=== PATIENT | female | born 1950 | race Caucasian/White ===

== ENCOUNTER 2019-05-16 07:37 | Outpatient (CLI) | payer MEDICARE, SELFPAY ==
--- NOTE | ~2019-05-16 | CT_ITS ---
EXAMINATION: CT abdomen pelvis wo con EXAM DATE: 05/16/2019 08:07 INDICATION: Nodule. TECHNIQUE: Spiral CT of the abdomen and pelvis was performed without contrast. Axial, coronal and s agittal images were reviewed. The dose-length product (DLP) for this examination was 568.81 mGy-cm. The exposure was tailored according to patient size (auto mA exposure control), and iterative recons truction (ASIR) was used as additional dose reduction technique. Comparison is made to prior examinat ion from 11/18/2018. FINDINGS: There is a 2.2 cm left adrenal gland nodule which is low density, consistent with adenoma. Size is unchanged compared to prior study. Pancreas, spleen, liver, right adrenal gland are unremarka ble. Gallbladder is unremarkable. No biliary obstruction. There is no nephrolithiasis or hydroneph rosis. The uterus is unremarkable. The bladder is unremarkable. There is no retroperitoneal or p elvic lymphadenopathy. There is mild scattered arteriosclerotic disease. The appendix is not positively visualized. There is no pericecal inflammatory change to suggest appe ndicitis. There is mild scattered colonic diverticulosis. There is no adjacent inflammatory change to suggest diverticulitis. There is small sliding gastroesophageal hiatal hernia. There is expected amount of colonic stool. No free intraperitoneal gas. The heart is normal in size. There are no pericardial or pleural effusions. The lung bases are unremarkable. There are no osteoblastic or ost eolytic lesions identified. There is a left hip arthroplasty. This is obscuring some details in the p rasheed IMPRESSION: 1. Left adrenal adenoma, unchanged. 2. Mild scattered colonic diverticulosis. 3. Small hiatal hernia. Reviewed, dictated and finalized at location A. 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
== END 2019-05-16 07:38 | disposition home or self-care (01) ==
LOC: ANHIMG 07:48
PROVIDERS: PCP Family Medicine; Visit Provider Nurse Practitioner
DX: E27.9 Disorder of adrenal gland, unspecified (principal); D35.02 Benign neoplasm of left adrenal gland; K57.30 Diverticulosis of large intestine without perforation or abscess without bleeding; K44.9 Diaphragmatic hernia without obstruction or gangrene
CPT/HCPCS: 74176

== ENCOUNTER 2019-11-24 14:08 | Outpatient (CLI) | payer MEDICARE, SELFPAY ==
--- NOTE | ~2019-11-24 | XR_ITS ---
EXAMINATION: XR knee RT min 4V DATE: 11/24/2019 14:32 INDICATION: Right knee pain. TECHNIQUE: 4 views of right knee were obtained. COMPARISON: None. FINDINGS: Bone alignment is normal. No fracture. There is mild tricompartmental osteoarthritis. There is a small knee joint effusion. IMPRESSION: 1. Mild right knee osteoarthritis. 2. Small right knee joint effusion. Reviewed, dictated and finalized at location B.
== END 2019-11-24 14:09 | disposition home or self-care (01) ==
LOC: ANHIMG 14:14
PROVIDERS: PCP Family Medicine; Visit Provider Physician Assistant
DX: M17.11 Unilateral primary osteoarthritis, right knee (principal); M25.461 Effusion, right knee
CPT/HCPCS: 73564

== ENCOUNTER 2020-02-03 13:48 | Outpatient (CLI) | payer MEDICARE, SELFPAY ==
--- NOTE | ~2020-02-03 | DEXA_ITS ---
Bone Density Report Name: Ramona Damon Age: 69 Sex: Female Ethnicity: White Date of : 1950 Indication: postmenopausal; height loss; Referring Provider: Joanna Lira Study: Bone densitometry was performed. Exam Date: February 03, 2020 Accession number: [id number] Bone Density: Region BMD T-score Z-score Classification AP Spine (L1-L4) 1.166 1.1 3.0 Normal Femoral Neck (Right) 0.732 -1.1 0.6 Osteopenia Total Hip (Right) 0.987 0.4 1.7 Normal World Health Organization criteria for BMD impression classify patients as: Normal (T-score at or above -1.0), Osteopenia (T-score between -1.0 and -2.5), or Osteoporosis (T-score at or below -2.5). 10-year Fracture Risk(1): Major Osteoporotic Fracture 8.2% Hip Fracture 0.7% Reported Risk Factors: [place] (), Neck BMD=0.732, BMI=31.3 (1) FRAX(R) Version 3.08. Fracture probability calculated for an untreated patient. Fracture probability may be lower if the patient has received treatment. Previous Exams: Region Exam Age BMD T-score BMD Change BMD Change Date g/cm2 vs Baseline vs Previous AP Spine(L1-L4) 02/03/2020 69 1.166 1.1 -0.212(-15.4%) -0.043(-3.6%)* 10/05/2017 67 1.209 1.5 -0.169(-12.3%) -0.169(-12.3%) 08/10/2010 60 1.378 3.0 Total Hip(Right) 02/03/2020 69 0.987 0.4 -0.099(-9.1%)# -0.018(-1.8%) 10/05/2017 67 1.006 0.5 -0.081(-7.4%)# -0.081(-7.4%)# 08/10/2010 60 1.087 1.2 *Denotes significance at 95% confidence level, LSC for AP Spine = 0.022 g/cm2, LSC for Total Hip = 0.027 g/cm2 Clinical Information Provided by Patient: Patient maximum height was 68 Menopause Age: 57 Onset of menses at age 14 Number of children 1 Impression: The patient has low bone mass, based on the Right Femoral Neck T-score. The patient has an estimated ten-year risk of hip fracture of 0.7% and an estimated ten-year risk of major fracture of 8.2%, based on the WHO FRAX algorithm. The BMD for the AP Spine(L1-L4) decreased, changing by -3.6% since the last DXA exam. Discussion: BONE DENSITY IS LOW AT ONE OR MORE SKELETAL SITES. This patient's lowest T-score is low at one or more skeletal sites. It meets the World Health Organization's (WHO) criteria for ?low bone mass? (T-score between -1.0 and -2.5). The patient's 10-year risk of fracture as calculated by FRAX is less than the threshold where pharmacological therapy is recommended by the National Osteoporosis Foundation (NOF). However, all treatment decisions require clinical deirdre
--- NOTE | ~2020-02-03 | MM_ITS ---
EXAMINATION: MM screening [facility] w marta HISTORY: Screening mammogram TECHNIQUE: Craniocaudal and mediolateral oblique 3-D tomosynthesis images were obtained and synthetic 2-D images were generated. CAD analysis was submitted and interpreted. COMPARISON: 01/17/2019, 10/05/2017, 09/20/2016 bilateral digital screening mammogram examinations BREAST PARENCHYMAL COMPOSITION: There are scattered areas of fibroglandular density. FINDINGS: Stable mild fibroglandular asymmetry and occasional benign calcifications. There is no evid ence of suspicious mass, calcification, or architectural distortion to suggest malignancy in either b reast. There has been no suspicious interval change. IMPRESSION: 1. No mammographic evidence of malignancy. 2. Recommend routine screening mammography in one year. BI-RADS Category 2: Benign finding(s). Reviewed, dictated and finalized at location A.
== END 2020-02-03 13:49 | disposition home or self-care (01) ==
PROVIDERS: PCP Family Medicine; Visit Provider Family Medicine
DX: Z12.31 Encounter for screening mammogram for malignant neoplasm of breast (principal); Z78.0 Asymptomatic menopausal state; M85.851 Other specified disorders of bone density and structure, right thigh
CPT/HCPCS: 77063; 77067; 77080

== ENCOUNTER 2021-02-04 09:12 | Outpatient (CLI) | payer MEDICARE, SELFPAY ==
--- NOTE | ~2021-02-04 | MM_ITS ---
EXAMINATION: MM screening [facility] w marta HISTORY: Screening mammogram TECHNIQUE: Craniocaudal and mediolateral oblique 3-D tomosynthesis images were obtained and synthetic 2-D images were generated. CAD analysis was submitted and interpreted. COMPARISON: 02/03/2020, 01/17/2019, 10/05/2017 bilateral digital screening mammogram examinations BREAST PARENCHYMAL COMPOSITION: There are scattered areas of fibroglandular density. FINDINGS: Stable mild fibroglandular asymmetry and occasional benign calcifications. There is no evid ence of suspicious mass, calcification, or architectural distortion to suggest malignancy in either b reast. There has been no suspicious interval change. IMPRESSION: 1. No mammographic evidence of malignancy. 2. Recommend routine screening mammography in one year. BI-RADS Category 2: Benign finding(s). Reviewed, dictated and finalized at location A.
== END 2021-02-04 09:13 | disposition home or self-care (01) ==
LOC: ANHIMG 09:14
PROVIDERS: PCP Family Medicine; Visit Provider Family Medicine
DX: Z12.31 Encounter for screening mammogram for malignant neoplasm of breast (principal)
CPT/HCPCS: 77063; 77067

== ENCOUNTER → 2021-04-27 02:12 | Outpatient (CLI) | payer MEDICARE, SELFPAY ==
[2021-04-27 23:19] LABS: SARS-CoV-2 RNA PCR Negative
== END ==
PROVIDERS: PCP Family Medicine; Visit Provider Family Medicine
DX: R09.89 Other specified symptoms and signs involving the circulatory and respiratory systems (principal); Z20.822 Contact with and (suspected) exposure to COVID-19
CPT/HCPCS: C9803; U0003; U0005

== ENCOUNTER 2022-04-01 08:56 | Outpatient (CLI) | payer MEDICARE, SELFPAY ==
--- NOTE | ~2022-04-01 | MM_ITS ---
EXAMINATION: MM screening [facility] BI w marta HISTORY: Screening TECHNIQUE: Craniocaudal and mediolateral oblique 3-D tomosynthesis images were obtained and synthetic 2-D images were generated. CAD analysis was submitted and interpreted. COMPARISON: Comparison to multiple prior studies sequentially, with oldest reviewed study dated 09/2015. BREAST PARENCHYMAL COMPOSITION: There are scattered areas of fibroglandular density. FINDINGS: There is no evidence of suspicious mass, calcification, or architectural distortion to sugg est malignancy in either breast. There has been no suspicious interval change. IMPRESSION: 1. No mammographic evidence of malignancy. 2. Recommend routine screening mammography in one year. BI-RADS Category 1: Negative. Reviewed, dictated and finalized at location A. 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
== END 2022-04-01 08:57 | disposition home or self-care (01) ==
LOC: ANHIMG 08:57
PROVIDERS: PCP Family Medicine; Visit Provider Family Medicine
DX: Z12.31 Encounter for screening mammogram for malignant neoplasm of breast (principal)
CPT/HCPCS: 77063; 77067

== ENCOUNTER 2022-06-04 09:24 | Outpatient (CLI) | payer MEDICARE, SELFPAY ==
--- NOTE | ~2022-06-04 | XR_ITS ---
Left Knee Technique: AP, lateral, and sunrise views were obtained. Clinical History: Pain Findings: No fracture or dislocation is seen. Osseous alignment is anatomic. Minimal degenerative spu rring noted at the patella and intercondylar notch. Soft tissues are unremarkable. No joint effusion is seen. Impression: Minimal degenerative spurring, as above. Reviewed, dictated and finalized at location . VISION SCHEDULE COORDINATOR Impression: Minimal degenerative spurring, as above.
== END 2022-06-04 09:25 | disposition home or self-care (01) ==
PROVIDERS: PCP Family Medicine; Visit Provider Physician Assistant
DX: M25.562 Pain in left knee (principal)
CPT/HCPCS: 73564

== ENCOUNTER 2022-08-21 19:27 | Emergency (ER) | payer OTHER, MEDICARE, SELFPAY ==
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
--- NOTE | ~2022-08-21 | XR_ITS ---
EXAMINATION: XR shoulder LT min 2V DATE: 08/21/2022 20:36 INDICATION: Left shoulder pain. TECHNIQUE: 4 views of left shoulder were obtained. COMPARISON: Left shoulder radiographs 05/13/2018 FINDINGS: Bone alignment is normal. No fracture. There is moderate osteoarthritis of glenohumeral melissa nt with a loose body. Acromioclavicular joint is normal. IMPRESSION: 1. Moderate osteoarthritis of glenohumeral joint with a loose body. Reviewed, dictated and finalized at location E.
[2022-08-21 19:45] VITALS: BP 143/79; PULSE 75; RESP 18; TEMP 36.8; O2SAT 100
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
== END 2022-08-21 21:32 | disposition home or self-care (01) ==
PROVIDERS: Emergency Provider Emergency Medicine; PCP Family Medicine
DX: S13.4XXA Sprain of ligaments of cervical spine, initial encounter (principal); I10 Essential (primary) hypertension; V49.88XA Car occupant (driver) (passenger) injured in other specified transport accidents, initial encounter
CPT/HCPCS: 72125; 73030; 99284

== ENCOUNTER 2023-01-15 11:30 | Outpatient (CLI) | payer MEDICARE, SELFPAY ==
--- NOTE | ~2023-01-15 | XR_ITS ---
XR heel RT min 2V DATE: 01/15/2023 11:55 INDICATION: Right heel pain, soreness TECHNIQUE: Axial and lateral views COMPARISON: None FINDINGS: Moderate plantar and minimal posterior calcaneal enthesopathy. No erosive change or periost itis. No fracture, dislocation or bone destruction of the calcaneus. IMPRESSION: Calcaneal enthesopathy Reviewed, dictated and finalized at location L. IMPRESSION: Calcaneal enthesopathy
== END 2023-01-15 11:31 | disposition home or self-care (01) ==
LOC: ANHIMG 11:37
PROVIDERS: PCP Family Medicine; Visit Provider Physician Assistant
DX: M77.31 Calcaneal spur, right foot (principal)
CPT/HCPCS: 73650

== ENCOUNTER 2023-03-13 00:59 | Day surgery (SDC) | payer MEDICARE, SELFPAY ==
[2023-02-26 11:06] VITALS: BMI 31.5
[2023-03-13 08:08] VITALS: BP 164/99; PULSE 72; RESP 20; TEMP 35.8; O2SAT 99; BMI 30.2
[2023-03-13] MEDS: LACTATED RINGERS 1,000 ML 150 ML IV CONT (08:22)
[2023-03-13 08:24] VITALS: BP 132/68
--- NOTE | 2023-03-13 08:39 | WPDANESEPPF ---
Anes - Initial Pre Proc Eval Procedure: Operation Date: 03/13/23 09:00 Proposed Procedures p Colonoscopy - Otis Mcgowan MD Date/Time: 03/13/23 08:39 Surgeon: Otis Mcgowan MD Pre Op Diagnosis: hx of colon polyps,Other specified postprocedural Patient Data Age: 72 Gender: F Height: 1.73 m Weight: 90.1 kg Last Vital Signs Temp 96.4 F L 03/13/23 08:08 Pulse 72 03/13/23 08:08 Resp 20 03/13/23 08:08 BP 132/68 03/13/23 08:24 Pulse Ox 99 03/13/23 08:08 O2 Del Method Room Air 03/13/23 08:08 Allergies Allergy/AdvReac Type Severity Reaction Status Date / Time tomato Allergy Intermediate Hives Verified 03/13/23 08:06 hydrocodone Allergy Unknown Vomiting Verified 03/13/23 08:06 Sulfa (Sulfonamide Allergy Unknown Hives Verified 03/13/23 08:06 Antibiotics) Home Medications Medication Instructions Recorded Confirmed Type Saccharomyces boulardii 250 mg 250 mg PO BID 11/24/19 03/13/23 History capsule (Daily Probiotic (S. boulardii)) loratadine 10 mg tablet (Claritin) 10 mg PO DAILY 11/24/19 03/13/23 History omega-3 fatty acids 1,000 mg 1,000 mg PO DAILY 11/24/19 03/13/23 History capsule (Fish Oil Concentrate) cholecalciferol (vitamin D3) 10 See Rx Instructions PO DAILY 04/10/20 03/13/23 History mcg (400 unit) capsule omeprazole magnesium 10 mg oral 10 mg PO DAILY 04/20/20 03/13/23 History suspension,delayed release (Prilosec) lisinopril 20 See Rx Instructions .Route 01/12/23 03/13/23 Rx mg-hydrochlorothiazide 25 mg tablet .COMPLEX #90 tabs metoprolol succinate 25 mg 25 mg PO .HS #90 tabs 02/16/23 03/13/23 Rx tablet,extended release 24 hr calcium citrate 1,200 mg PO DAILY 02/26/23 03/13/23 History Patient hx anesthesia problems: none Family hx anesthesia problems: none Results Review: All pre-operative results and documents have been reviewed as part of the pre-operative evaluation. [facility] Past Medical History Medical History (Updated 01/28/23 @ 15:53 by Sabina Lujan MD) C. difficile colitis 2016 Colon polyp, hyperplastic Encounter for immunization GERD (gastroesophageal reflux disease) Hypertension IBS (irritable bowel syndrome) Osteoarthritis Osteoporosis Prediabetes Right knee pain Uterine cancer Surgical History Surgical History H/O total hysterectomy History of cataract extraction (~2017) History of eyelid surgery (~2019) History of left hip replacement (~2018) Hx of section (~1978) x1 Hx of tonsillectomy (~1957) Family History Family History Father Diabetes mellitus Family history of Parkinson's disease Family history of dementia Hypertension Mother Hypertension Family history of malignant neoplasm of ovary Sibling Hypertension Family history of malignant neoplasm of breast in first degree relative Social History Social History Smoking status: Never smoker Second hand tobacco smoke exposure: No Alcohol intake: never Substance use: never Substance use type: does not use Lack of Transportation: No Lack of Food: Never True Current Housing: I Have Housing Concerned About Future Housing: No Difficulty Paying Gas/Electric Bills: No Difficulty Paying for Meds: No Education: Master's Degree or Higher Difficulty w/ Childcare or Family Care: No Gender identity (if verbalized by the patient): Female Spiritual care concerns: No Anes - Eval Final PreProcedure Day of Procedure 03/13/23 08:39 Patient weight: obese Heart: regular rate and rhythm Lungs: clear to auscultation Airway: Mallampati scale class II Neurological: alert and oriented Last oral intake: >/= 8 hours ASA classification: III Emergent: no Anesthetic plan: proceed Anesthesia type and monitoring: general GIVS and standard monitorin
--- NOTE | 2023-03-13 08:47 | PM.HPGS ---
History of Present Illness History of Present Illness Consent: Risks, benefits, and alternatives have been discussed and questions answered. Patient agrees to proceed with procedure. Chief complaint: hx of colon polyps,Other specified postprocedural Narrative: Ramona Damon is a 72 year old female with colon polyp 5 years ago Review of Systems Constitutional: Constitutional: Denies headache(s) and Denies weakness Eyes: Eyes: Denies blurry vision ENT: Reports Normal hearing present, Denies headache(s) and Denies neck pain Cardiovascular: Cardiovascular: Denies chest pain and Denies dyspnea Respiratory: Respiratory: Denies dyspnea Gastrointestinal: Gastrointestinal: Reports no additional gastrointestinal complaints Genitourinary: Genitourinary: Denies dysuria Musculoskeletal: Musculoskeletal: Denies neck pain Integumentary/Breasts: Skin/Breast: Denies dry skin Neurologic: Reports Normal hearing present, Denies headache(s) and Denies weakness Psychiatric: Psychiatric: Denies anxiety Endocrine: Endocrine: Denies change in body appearance Hematologic/Lymphatic: Hematologic/Lymphatic: Denies easy bleeding Allergic/Immunologic: Allergic/Immunologic: Denies urticaria PMFSH Past Medical History Medical History (Updated 03/13/23 @ 08:48 by Otis Mcgowan MD) Adenomatous colon polyp C. difficile colitis 2016 Colon polyp, hyperplastic Encounter for immunization GERD (gastroesophageal reflux disease) Hypertension IBS (irritable bowel syndrome) Osteoarthritis Osteoporosis Prediabetes Right knee pain Uterine cancer Surgical History Surgical History H/O total hysterectomy History of cataract extraction (~2017) History of eyelid surgery (~2019) History of left hip replacement (~2018) Hx of section (~1978) x1 Hx of tonsillectomy (~8) Family History Family History Father Diabetes mellitus Family history of Parkinson's disease Family history of dementia Hypertension Mother Hypertension Family history of malignant neoplasm of ovary Sibling Hypertension Family history of malignant neoplasm of breast in first degree relative Social History Social History Smoking status: Never smoker Second hand tobacco smoke exposure: No Alcohol intake: never Substance use: never Substance use type: does not use Lack of Transportation: No Lack of Food: Never True Current Housing: I Have Housing Concerned About Future Housing: No Difficulty Paying Gas/Electric Bills: No Difficulty Paying for Meds: No Education: Master's Degree or Higher Difficulty w/ Childcare or Family Care: No Gender identity (if verbalized by the patient): Female Spiritual care concerns: No Meds Home Medications and Allergies Home Medications Medication Instructions Recorded Confirmed Type Saccharomyces boulardii 250 mg 250 mg PO BID 11/24/19 03/13/23 History capsule (Daily Probiotic (S. boulardii)) loratadine 10 mg tablet (Claritin) 10 mg PO DAILY 11/24/19 03/13/23 History omega-3 fatty acids 1,000 mg 1,000 mg PO DAILY 11/24/19 03/13/23 History capsule (Fish Oil Concentrate) cholecalciferol (vitamin D3) 10 See Rx Instructions PO DAILY 04/10/20 03/13/23 History mcg (400 unit) capsule omeprazole magnesium 10 mg oral 10 mg PO DAILY 04/20/20 03/13/23 History suspension,delayed release (Prilosec) lisinopril 20 See Rx Instructions .Route 01/12/23 03/13/23 Rx mg-hydrochlorothiazide 25 mg tablet .COMPLEX #90 tabs metoprolol succinate 25 mg 25 mg PO .HS #90 tabs 02/16/23 03/13/23 Rx tablet,extended release 24 hr calcium citrate 1,200 mg PO DAILY 02/26/23 03/13/23 History Allergies Allergy/AdvReac Type Severity Reaction Status Date / Time tomato Allergy Intermediate Hives Verified 03/13/23 08:06 h
[2023-03-13 09:09] VITALS: BP 97/75; PULSE 63; RESP 12; O2SAT 94
[2023-03-13 09:19] VITALS: BP 106/74; PULSE 60; RESP 13; O2SAT 100
[2023-03-13 09:29] VITALS: BP 117/67; PULSE 61; RESP 12; O2SAT 100
[2023-03-13 09:50] LABS: Glucose Point of Care 101 mg/dl (65-105)
== END 2023-03-13 09:33 | disposition home or self-care (01) ==
PROVIDERS: PCP Family Medicine; Visit Provider Internal Medicine Gastroenterology
PROC: 0DJD8ZZ Inspection of Lower Intestinal Tract, Via Natural or Artificial Opening Endoscopic (ICD-10-PCS; CPT 45378; principal; 2023-03-13 09:00)
DX: Z12.11 Encounter for screening for malignant neoplasm of colon (principal); I10 Essential (primary) hypertension; R73.03 Prediabetes; K21.9 Gastro-esophageal reflux disease without esophagitis; K58.9 Irritable bowel syndrome, unspecified; M19.90 Unspecified osteoarthritis, unspecified site; M81.0 Age-related osteoporosis without current pathological fracture; E66.9 Obesity, unspecified; Z68.30 Body mass index [BMI] 30.0-30.9, adult; Z98.890 Other specified postprocedural states; Z96.642 Presence of left artificial hip joint; Z86.010 Personal history of colon polyps; Z85.42 Personal history of malignant neoplasm of other parts of uterus; Z80.3 Family history of malignant neoplasm of breast; Z80.41 Family history of malignant neoplasm of ovary
CPT/HCPCS: G0105; 82948; J2704; J7120

== ENCOUNTER 2023-06-04 08:17 | Outpatient (CLI) | payer MEDICARE, SELFPAY ==
--- NOTE | ~2023-06-04 | MM_ITS ---
EXAMINATION: MM screening [facility] BI w marta HISTORY: Screening TECHNIQUE: Craniocaudal and mediolateral oblique 3-D tomosynthesis images were obtained and synthetic 2-D images were generated. CAD analysis was submitted and interpreted. COMPARISON: Comparison to multiple prior studies sequentially, with oldest reviewed study dated 09/20. BREAST PARENCHYMAL COMPOSITION: Not dense: There are scattered areas of fibroglandular density. FINDINGS: There is no evidence of suspicious mass, calcification, or architectural distortion to sugg est malignancy in either breast. There has been no suspicious interval change. IMPRESSION: 1. No mammographic evidence of malignancy. 2. Recommend routine screening mammography in one year. BI-RADS Category 1: Negative Reviewed, dictated and finalized at location A. SANDER
== END 2023-06-04 08:18 | disposition home or self-care (01) ==
PROVIDERS: PCP Family Medicine; Visit Provider Family Medicine
DX: Z12.31 Encounter for screening mammogram for malignant neoplasm of breast (principal)
CPT/HCPCS: 77063; 77067

== ENCOUNTER 2024-07-04 07:50 | Outpatient (CLI) | payer MEDICARE, SELFPAY ==
--- NOTE | ~2024-07-04 | MM_ITS ---
EXAMINATION: MM screening [facility] BI w marta HISTORY: Screening TECHNIQUE: Craniocaudal and mediolateral oblique 3-D tomosynthesis images were obtained and synthetic 2-D images were generated. CAD analysis was submitted and interpreted. COMPARISON: 06/04/2023 and dating back to 02/03/2020 BREAST PARENCHYMAL COMPOSITION: There are scattered areas of fibroglandular density. FINDINGS: Punctate calcifications are detected bilaterally, stable and benign in appearance. Stable parenchymal pattern without suspicious microcalcifications, architectural distortion, discrete masses or significant asymmetry. IMPRESSION: 1. No mammographic evidence of malignancy. 2. Recommend routine screening mammography in one year. BI-RADS Category 2: Benign finding(s). Reviewed, dictated and finalized at location A.
--- OUTSIDE RECORDS SUMMARY | 2024-07-04 07:55 | XMS_ITS | Clinical Summary ---
Author Organization [facility] Address [address] [place] [address] Care Team Providers Care Arrow Point Attacher Name Role Phone Unavailable Primary Care Provider Unavailabl e Source Comments [facility],non-owned Affiliates and Associated Physician Practices is amultiple site organization consisting of ambulatory clinics and hospital sitesin [place], [place], [place] and [place]. This disclosure is being madepursuant to the Care Everywhere program and may not contain all information available regarding this patient. Last updated 18.[facility] e-channel Social History Tobacco Use Types Packs/Day Years Used Date Smoking Tobacco: Never Assessed Sex and Gender Information Value Date Recorded Sex Assigned at Not on file Gender Identity Not on file Sexual Orientation Not on file Plan of Treatment Health Maintenance Due Date Last Done Comments BONE DENSITY TESTING 1950 COLOGUARD (AGES 45-75) - COL ON CA SCREENING 1950 COLON MONITORING 1950 COLONOSCOPY - COLON CA SCREENING 1952 CT COLONOGRAPHY - COLON CA SCREENING 1950 Colorectal Cancer Screening 1950 FIT - COLON CA SCREENING 1952 FLEX SIG - COLON CA SCREENING 1950 LIPID TESTING 1950 MAMMOGRAM 1950 HEPATITIS C SCREENING 07/03/1970 DTAP/TDAP/TD VACCINES (1 - Tdap) 07/08/1971 PNEUMOCOCCAL VACCINE 50+ (1 of 1 - PCV) 2002 ZOSTER VACCINE (1 of 2) 2002 COVID-19 VACCINE ( - 2023-2 5 season) 2023 INFLUENZA VACCINE (#1) 2023 DEPRESSION SCREENING 04/13/2024 MEDICARE AWV CALENDAR YEAR 2024 Respiratory Syncytial Virus (RSV) Vaccine Pt: or over 60 yrs (1 - 1-dose 75+ series) 07/08/2027 HEPATITIS B VACCINE Aged Out No longe r eligible based on patient's age to complete this topic HIB VACCINE Aged Out No longer eligi ble based on patient's age to complete this topic HPV VACCINE Aged Out No longer eligi ble based on patient's age to complete this topic MENINGOCOCCAL (Group B) VACC INE SHARED DECISION-MAKING Aged Out No longer eligibl e based on patient's age to complete this topic MENINGOCOCCAL GROUPS A/C/Y/W VACCINE Aged Out No longer eligible b ased on patient's age to complete this topic Ramona Kong Personal/Family Self 1950
--- OUTSIDE RECORDS SUMMARY | 2024-07-04 07:55 | XMS_ITS | Encounter Summary ---
Author Organization [facility] Address [address] [place] [address] Care Team Providers Care Safety Clothing And Equipment Developer Name Role Phone Unavailable Primary Care Provider Unavailabl e Encounter Details Date Type Department Care Team (Late st Contact Info) Description 01/08/2024 Lab Requisition [facility] - DermPath Lab [address] [place] [phone] Jeff Haq MD [address] [place], [place] [id number] Social History Tobacco Use Types Packs/Day Years Used Date Smoking Tobacco: Never Assessed Sex and Gender Information Value Date Recorded Sex Assigned at Not on file Gender Identity Not on file Sexual Orientation Not on file documented as of this encounter Plan of Treatment Not on file documented as of this encounter Procedures Procedure Name Priority Date/Time Associated Diagnosis Comments DERMATOPATHOLOGY Routine 01/06/2024 12:0 0 AM CDT documented in this encounter Results * DERMATOPATHOLOGY (01/06/2024 12:00 AM CDT) Case Report Dermatopathology Report Case: [id number] Authorizing Provider: Jeff Haq MD Collected: 01/06/2024 12:00 AM Ordering Location: [facility] - Received: 01/08/2024 03:12 PM DermPath Lab Pathologist: Bev Toledo MD Specimen: Skin, right posterior neck 4 1:47 PM CDT DERMATOPATHOLOGY LABORATORY Final Diagnosis Specimen A. SKIN, right posterior neck: NEUROFIBROMA (D36.10) 4 1:47 PM CDT DERMATOPATHOLOGY LABORATORY Clinical History R/O BCC vs SCC 1:47 PM CDT DERMATOPATHOLOGY LABORATORY Gross Description Specimen A: Received is one formalin filled container labeled with the patient's name and designated right posterior neck. The specimen consists of a shave biopsy measuring 6x5x2 mm. Jar 0. 1:47 PM CDT DERMATOPATHOLOGY LABORATORY Microscopic Description Specimen A. SKIN, right posterior neck: Sections show a proliferation of spindled and S-shaped cells within the dermis. The stromal collagen is delicate and pale. 1:47 PM CDT DERMATOPATHOLOGY LABORATORY Disclaimer An external and internal positive and negative controls are appropriate for the histochemical, immunohistochemical and immunofluorescence stain(s) in this case (if any), except where stated explicitly. The performance characteristics of the stain(s) cited in this report were developed and its performance characteristic determined by the Dermatopathology Laboratory at [facility], directed by Dr. Mariela Verdin. These tests need not be, and therefore are not, approved by the [place] Food and Drug Administration. The tests are used for clinical purposes. Billing Codes Specimen Charges Stain Charges 49806 1 1:47 PM CDT DERMATOPATHOLOGY LABORATORY Embedded Images 1:47 PM CDT DERMATOPATHOLOGY LABORATORY Pathology/Cytolog y TISSUE SPECIMEN FROM SKIN / Unknown 01/06/2024 01/08/2024 3:12 PM CDT Jeff Haq MD LAB - PATHOLOGY/CYTO LOGY ORDERABLES DERMATOPATHOLOGY LABORATORY [facility] - Department of Dermatology [address] [phone] documented in this encounter Visit Diagnoses Not on filedocumented in this encounter
--- OUTSIDE RECORDS SUMMARY | 2024-07-04 07:55 | XMS_ITS | Encounter Summary ---
Author Organization [facility] Address [address] [place] [address] Care Team Providers Care Detective Bowling Alley Name Role Phone Unavailable Primary Care Provider Unavailabl e Encounter Details Date Type Department Care Team (Late st Contact Info) Description 03/07/2020 Lab Requisition [facility] DermPath Lab [address] [place] [phone] Jeff Haq MD [address] [place] [address] Social History Tobacco Use Types Packs/Day Years Used Date Smoking Tobacco: Never Assessed Sex and Gender Information Value Date Recorded Sex Assigned at Not on file Gender Identity Not on file Sexual Orientation Not on file documented as of this encounter Plan of Treatment Not on file documented as of this encounter Procedures Procedure Name Priority Date/Time Associated Diagnosis Comments DERMATOPATHOLOGY Routine 03/06/2020 12:0 0 AM MANAGER COMPETITIVE INTELLIGENCE documented in this encounter Results * DERMATOPATHOLOGY (03/06/2020 12:00 AM MANAGER COMPETITIVE INTELLIGENCE) Case Report Dermatopathology Report Case: [id number] Authorizing Provider: Jeff Haq MD Collected: 03/06/2020 12:00 AM Ordering Location: [facility] DermPath Lab Received: 03/07/2020 11:20 AM Pathologist: Neha Chandler MD Specimen: Skin, dorsal left foot 0 4:51 PM MANAGER COMPETITIVE INTELLIGENCE DERMATOPATHOLOGY LABORATORY Final Diagnosis Specimen A. 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 The specimen consists of a shave biopsy measuring 9x8x1 mm. Jar 0. 0 4:51 PM [facility] DERMATOPATHOLOGY LABORATORY Microscopic Description Specimen A. SKIN, dorsal left foot: There is psoriasiform hyperplasia of the epidermis. The suprapapillary plates are thinned and the granular layer is diminished. The horny layer contains areas of compact, confluent parakeratosis with collections of neutrophils. In the papillary dermis there are dilated, tortuous capillary loops and a lichenoid lymphocytic infiltrate associated with vacuolar changes of basilar keratinocytes and scattered necrotic keratinocytes. Grocott's methenamine silver (GMS) stain fails to highlight fungal elements in the available sections. COMMENT: If this specimen represents is a single / solitary lesion, these histologic findings are consistent with a psoriasiform and inflamed (lichenoid) keratosis. 0 4:51 PM [facility] DERMATOPATHOLOGY LABORATORY Disclaimer An external and internal positive and negative controls are appropriate for the histochemical, immunohistochemical and immunofluorescence stain(s) in this case (if any), except where stated explicitly. The performance characteristics of the stain(s) cited in this report were developed and its performance characteristic determined by the Dermatopathology Laboratory at [facility], directed by Dr. Mariela Verdin. These tests need not be, and therefore are not, approved by the [place] Food and Drug Administration. The tests are used for clinical purposes. Billing Codes Specimen Charges Stain Charges 63839 1 85351 1 0 4:51 PM [facility] DERMATOPATHOLOGY LABORATORY Embedded Images 0 4:51 PM [facility] DERMATOPATHOLOGY LABORATORY Pathology/Cytolog y TISSUE SPECIMEN FROM SKIN / Unknown 03/06/2020 03/07/2020 11:20 AM MANAGER COMPETITIVE INTELLIGENCE Jeff Haq MD LAB - PATHOLOGY/CYTO LOGY ORDERABLES DERMATOPATHOLOGY LABORATORY [facility] - Department of Dermatology [address] [phone] documented in this encounter Visit Diagnoses Not on filedocumented in this encounter
--- OUTSIDE RECORDS SUMMARY | 2024-07-04 07:56 | XMS_ITS ---
Author Organization [facility] Address [address] [place] [id number] Care Team Providers Care Radiology Therapist Name Role Phone Imelda Estrella MD Unavailable [phone] Sabina Lujna MD Primary Care Provider [phone] Active Problems Problem Noted Date Diagnosed Date Mixed stress and urge urinary incontinence 11/09 Urinary urgency 09/14/2020 Urinary frequency 09/14/2020 Pelvic floor dysfunction in female 09/14/2020 Endometrial cancer 06/26/2020 Cancer Staging:Pathologic:FIGO Stage IA- Signed by Rosie Burciaga MD on 11/29/2020 Overview (06/26/2020): Added automatically from request for surgery [id number] Uterine polyp 05/22/2020 Overview (05/22/2020): Added automatically from request for surgery [id number] Low back pain 05/18/2017 Inguinal pain 05/18/2017 Pain of lower extremity 05/18/2017 Arthralgia of hip 03/25/2017 Abscess of lip 08/22/2015 History of surgical procedure 08/22/2015 Current Treatment and Therapy Plans No current plan information found. Past Treatment and Therapy Plans No past plan information found. Lifetime Dose Tracking * Chemical Lifetime Dose Automatic Entry Manual Entr y DLP 3,242 mGycm 3,242 mGycm 0 mGycm
--- OUTSIDE RECORDS SUMMARY | 2024-07-04 07:56 | XMS_ITS | Clinical Summary ---
Author Organization [facility] Address [address] [place] [phone] Care Team Providers Care Hair Designer Name Role Phone Imelda Estrella MD Unavailable [phone] Sabina Lujan MD Primary Care Provider [phone] Allergies Active Allergy Reactions Criticality Noted Date Comments Clindamycin Other (See comments) Low 06/07/2020 Caused C Difficile Hydrocodone Nausea & Vomiting Low 05/17/2020 Sulfa (Sulfonamide Antibiotics) Hives Medium 08/22/2015 Tomato Hives Medium 08/30/2018 Medications omeprazole (PriLOSEC) 20 mg capsuleIndication s:Stress Ulcer Prophylaxis,GERD Take 1 capsule (20 mg total) by mouth every morning Active lisinopril-hydroC HLOROthiazide (ZESTORETIC) 20-25 mg per tabletIndications :hypertension Take 1 tablet by mouth every morning 0 Active loratadine (CLARITIN) 10 mg tabletIndications :Allergic Rhinitis Take 1 tablet (10 mg total) by mouth daily with dinner Active omega 3-cwx-vxb-fish oil 1,000 mg (120 mg-180 mg) capsuleIndication s:hypertriglyceri demia Take 1 capsule (1,000 mg total) by mouth 2 (two) times a day 1 capsule with lunch and 1 capsule with dinner. Last dose 07/04/20 Active cholecalciferol (VITAMIN D-3) 25 mcg (1,000 unit) tabletIndications :Vitamin D Deficiency,osteop enia Take 1 tablet (1,000 Units total) by mouth daily with dinner Active calcium citrate 250 mg calcium tablet tabletIndications :Post-Menopausal Osteoporosis Prevention Take 4.8 tablets (1,200 mg total) by mouth nightly Active propylene glycol (SYSTANE COMPLETE OPHT)Indications: dry eye Administer 2 drops into both eyes 2 (two) times a day Active Bifidobacterium infantis (ALIGN) 4 mg capsule 2 capsules (8 mg total) Active metoprolol XL (TOPROL-XL) 25 mg extended release tablet Take 1 tablet (25 mg total) by mouth nightly at bedtime. 1 Active scopolamine 1 mg over 3 days patch 3 day APPLY ONE PATCH TOPICALLY EVERY 3 DAYS NEEDED FOR MOTION SICKNESS. 5 Active Active Problems Problem Noted Date Diagnosed Date Mixed stress and urge urinary incontinence 11/09 Urinary urgency 09/14/2020 Urinary frequency 09/14/2020 Pelvic floor dysfunction in female 09/14/2020 Endometrial cancer 06/26/2020 Cancer Staging:Pathologic:FIGO Stage IA- Signed by Rosie uBrciaga MD on 11/29/2020 Overview (06/26/2020): Added automatically from request for surgery [id number] Uterine polyp 05/22/2020 Overview (05/22/2020): Added automatically from request for surgery [id number] Low back pain 05/18/2017 Inguinal pain 05/18/2017 Pain of lower extremity 05/18/2017 Arthralgia of hip 03/25/2017 Abscess of lip 08/22/2015 History of surgical procedure 08/22/2015 Encounters Date Type Department Care Team Description 06/14/2024 1:10 PM PHYSICIAN OFFICE SPECIALIST Office Visit [facility] Orthopaedic Surgery [facility] Medical Office Building [address] [place] [address] Emeli Mishra MD Achilles tendinosis of right ankle (Primary Dx) 05/23/2024 Telephone [facility] [place] [address] [place] [phone] Sruthi Rand MA 05/23/2024 Telephone [facility] [place] [address] [place] [address] Sruthi Rand MA 05/21/2024 3:30 PM PHYSICIAN OFFICE SPECIALIST Office Visit [facility] [place] [address] [place] [phone] Hilary Ruffin NP Acute cystitis with hematuria (Primary Dx); Vaginal itching 05/21/2024 3:21 PM PHYSICIAN OFFICE SPECIALIST - 05/21/2024 11:59 PM PHYSICIAN OFFICE SPECIALIST Hospital Encounter [place] [id number] Vaginal itching; Acute cystitis with hematuria Discharge Disposition: Discharge to home or self care from Last 3 Months Immunizations Immunization Administration Dates Next Due Influenza, Quadrivalent, Hig h Dose, Preservative Free, Intrr 01/07/2021 Influenza, Trivalent, Preservative Free, Intramu scular 02/03/2017,01/14/2016 Moderna SARS-CoV-2 Monovalent Vaccination (12+ Y RS) 04/23/2020,04/23/2020 Pneumococcal Conjugate PCV 13 09/28/2018 Pneumococcal Polysaccharide PPV23 09/28/2017 TD Preservative Free 11/16/2002 ZOSTER Recombinant 06/23/2018,04/16/2018 Surgical History Surgery Date Site/Laterality Comments TONSILLECTOMY 04/13/1957 - 04/12/1958 TOTAL HIP ARTHROPLASTY 04/13/2017 - 04/12/2018 Left BLEPHAROPTOSIS REPAIR 04/13/2018 - 04/12/2019 Bilateral JOINT REPLACEMENT hip SECTION 04/13/1978 - 04/12/1979 CATARACT EXTRACTION 04/13/2016 - 04/12/2017 Bilateral ESOPHAGOGASTRODUODENOSCOPY DILATION AND CURETTAGE OF UTERUS 04/13/2020 - 04/12/2021 HYSTERECTOMY 2020 LASIK 2016 Medical History Medical History Date Comments Hypertension Osteopenia C. difficile diarrhea 2016 Acid reflux Hiatal hernia GI problem Incontinence Joint pain Pelvic floor dysfunction Motion sickness PONV (postoperative nausea a nd vomiting) PONV with most recent hyster oscopy and D&C Arthritis 1999 Osteoporosis 2018 Cancer (HCC) June 2020 Cataract 2016 Family History Medical History Relation Name Comments Diabetes Father Gene Family history of diabetes mellitus - (Added by TW Conv) Heart disease Father Gene Family history of cardiac disorder - (Added by TW Conv) Kidney disease Father Gene Family histor y of kidney disease - (Added by TW Conv) Cancer Maternal Grandfather Dominic Family history of malignant neoplasm - (Added by TW Conv) Heart disease Maternal Grandmother Danisha Family history of cardiac disorder - (Added by TW Conv) Arthritis Mother Rosana Family history of arthritis - (Added by TW Conv) Cancer Mother Rosana Family history of malignant neoplasm - (Added by TW Conv) Diabetes Mother Rosana Family history of diabetes mellitus - (Added by TW Conv) Heart disease Mother Rosana Family history of cardiac disorder - (Added by TW Conv) Hypertension Mother Rosana Family history of hypertension - (Added by TW Conv) Alcohol abuse Paternal Grandfather Jorge Family history of alcoholism - (Added by TW Conv) Diabetes Paternal Grandmother Roderick Family history of diabetes mellitus - (Added by TW Conv) Heart disease Paternal Grandmother Roderick Family history of cardiac disorder - (Added by TW Conv) Hypertension Sister Brittny Family history of hypertension - (Added by TW Conv) Anesthesia problems Neg Hx Relation Name Status Comments Father Gene Maternal Grandfather Dominic Maternal Grandmother Danisha Mother Rosana Paternal Grandfather Jorge Paternal Grandmother Roderick Sister Brittny Social History Tobacco Use Types Packs/Day Years Used Date Smoking Tobacco: Never Smokeless Tobacco: Never Tobacco Cessation:Counseling Given: Not Answered Alcohol Use Standard Drinks/Week Comments Never 0 (1 standard drink = 0.6 oz pur e alcohol) AUDIT-C Answer Date Recorded Q1: How often do you have a drink containing alc ohol? Never 07/09/2020 Average Number of Drinks Not on file 021 Q3: How often do you have si x or more drinks on one occasion? Never 07/09/2020 Exercise Vital Sign Answer Date Recorde d On average, how many days pe r week do you engage in moderate to strenuous exercise (like a brisk walk)? 0 days 05/17/2020 On average, how many minutes do you engage in exercise at this level? 0 min 05/17/2020 Comments No Sex and Gender Information Value Date Recorded Sex Assigned at Not on file Legal Sex Female 8:21 AM PHYSICIAN OFFICE SPECIALIST Gender Identity Female 07/20/2020 6:43 AM CDT Sexual Orientation Straight 07/20/2020 6 :43 AM CDT Obstetrics History Para Term AB IAB SAB Ectopic Multiple Livin g Live Births 1 1 1 1 1 Date Outcome GA Total Labor Labor/2nd/3rd Weight Sex Type Anes PTL Linsey A1 A5 Name Clin Term CS-Un spec Living Last Filed Vital Signs Vital Sign Reading Time Taken Comments Blood Pressure 112/78 05/21/2024 3:21 PM PHYSICIAN OFFICE SPECIALIST Pulse 75 05/21/2024 3:21 PM PHYSICIAN OFFICE SPECIALIST Temperature 36.6 C (97.8 F) 05/21/2024 3:21 PM PHYSICIAN OFFICE SPECIALIST Respiratory Rate 16 05/21/2024 3:21 PM PHYSICIAN OFFICE SPECIALIST Oxygen Saturation 98% 05/21/2024 3:21 PM PHYSICIAN OFFICE SPECIALIST Inhaled Oxygen Concentration - - Weight 88.5 kg (195 lb) 05/21/2024 3:21 PM PHYSICIAN OFFICE SPECIALIST Height 172.7 cm (5' 8 ) 05/21/2024 3:21 PM PHYSICIAN OFFICE SPECIALIST Body Mass Index 29.65 05/21/2024 3:21 PM PHYSICIAN OFFICE SPECIALIST Plan of Treatment Health Maintenance Due Date Last Done Comments Breast Cancer Screening-Mammogram 1952 Colon Cancer Screening-Colonoscopy 1950 Depression Screening 1950 Hepatitis C Screening 1950 Osteoporosis Screening-Bone Density Scan 1952 Hepatitis B Screening 1970 DTaP/Tdap/Td Vaccine (1 - Tdap) 11/17/2002 3 Well Visit 65+ 2017 Fall Risk Assessment 07/09/2021 07/09/2020 Covid-19 Vaccine (5 - 2023-2 5 season) 2023 02/06/2021, 05/25/2020, 04/23/2020, Additional history exists Influenza Vaccine (#1) 2023 , 02/03/2017, 01/14/2016 Zoster Vaccine Completed 06/23/2018, 04/16/2018 Pneumococcal vaccine 65+ Completed 09/28/2018, 09/11 Procedures Procedure Name Priority Date/Time Associated Diagnosis Comments POCT URINALYSIS DIPSTICK Routine 05/21/2024 3:43 PM PHYSICIAN OFFICE SPECIALIST Acute cystitis with hematuria URINE CULTURE Routine 05/21/2024 3:21 PM PHYSICIAN OFFICE SPECIALIST Acute cystitis with hematuria VAGINITIS PANEL Routine 05/21/2024 3:21 PM PHYSICIAN OFFICE SPECIALIST Vaginal itching from Last 3 Months Results * (ABNORMAL) POCT urinalysis dipstick (05/21/2024 3:43 PM PHYSICIAN OFFICE SPECIALIST) Color, Urine, POC Yellow Clarity, ur, POC Clear Clear Glucose, ur, POC Negative Negative MG/DL Bilirubin, ur, POC Negative Negative, Small, Moderate, Large Ketones, ur, POC Negative Negative Specific [place], POC 1.015 1.003 - 1.030 Blood, ur, POC Trace(A) Negative pH, ur, POC 6.0 5.0 - 8.0 Protein, ur, POC Negative Negative Urobilinogen, urine, POC 0.2 0.2 - 1.0 mg/dL Nitrite, ur, POC Negative Negative Leukocytes, ur, POC Small(A) Negative Lot Number [id number] Urine 05/21/2024 3:43 PM PHYSICIAN OFFICE SPECIALIST Hilary Ruffin NP POINT OF CARE TEST ORDERABLES Fi nal Result * Vaginitis panel Vaginal (05/21/2024 3:21 PM PHYSICIAN OFFICE SPECIALIST) Pathologist [facility] Dasha DNA probe Not Detected Not Detected Comment:Testing performed by : [facility], [address] [place] [address]., [address] Gardnerella DNA probe Not Detected Not Detected [facility] Comment:Testing performed by : [facility], [address] [place] [address]., [address] Trichomonas DNA probe Not Detected Not Detected ZAKIYA Comment: Interpretive Data Testing performed by [facility] via Affirm VPIII Microbial Identification Test, a DNA probe test for use in the detection and identification of Dasha species, Gardnerella vaginalis and Trichomonas vaginalis nucleic acid in vaginal fluid specimens from patients with symptoms of vaginitis/vaginosis. Negative results for these tests suggest the patient does not have candidiasis, bacterial vaginosis and/or trichomoniasis when consistent with clinical signs and symptoms. Current interpretive data was last revised on 2020. Testing performed by: [facility], [address], [place]., [address] Vaginal 05/21/2024 3:21 PM PHYSICIAN OFFICE SPECIALIST 05/23/2024 8:24 AM PHYSICIAN OFFICE SPECIALIST Hilary Ruffin NP LAB MICROBIOLOGY - GENERAL ORDER SHILPA Final Result Performing Organization Address City/[facility]/ZIP Co de Phone Number ZAKIYA LOVE [id number] [address] Department [place] [address] * Urine culture Urine, clean voided (05/21/2024 3:21 PM PHYSICIAN OFFICE SPECIALIST) Report Final Report: Less than 100,000 colonies/mL (clinically insignificant growth based on current clinical standards) Comment:Testing performed by : [facility], [address] [place]., [address] Organism (CLINICALLY INSIGNIFICANT GROWTH ZAKIYA Urine, clean voided 05/21/2024 3:21 PM PHYSICIAN OFFICE SPECIALIST 05/22/2024 2:13 AM PHYSICIAN OFFICE SPECIALIST Narrative ZAKIYA - 05/23/2024 6:18 AM PHYSICIAN OFFICE SPECIALIST Testing performed by [facility] Microbiology Laboratory ([phone]) Hilary Ruffin NP LAB MICROBIOLOGY - GENERAL ORDER SHILPA Final Result Performing Organization Address City/[facility] Co de Phone Number ZAKIYA LOVE [id number] [address] Department [place] [address] from Last 3 Months Additional Health Concerns Infection Onset Date Last Indicated C. difficile Comment:Germ watcher auto flagging. Specimen: STOOL Site: 09/03/2015 09/03/2015 [place] [address] [place] [address] [place] [address] [facility] [place] [place] [address] Advance Directives For more information, please contact: [phone] Documents on File Type Date Recorded Patient Liner Machine Operator Helper Expl anation ADVANCE DIRECTIVE 07/09/2020 5:44 AM Power of Wheel Presser-Medical Care Teams Hair Designer Relationship Specialty Start Date End Date Sabina Lujan MD [address] [place] [address] PCP - General Family Medicine 03/15/24 Imelda Estrella MD [phone] [place] [address] Referring Physician Urogynecology 07/27/20
--- OUTSIDE RECORDS SUMMARY | 2024-07-04 07:56 | XMS_ITS | Referral Summary ---
Author Organization [facility] Address [address] [place] [phone] Care Team Providers Care Ice Cream Shop Associate Name Role Phone Imelda Estrella MD Unavailable [phone] Sabina Lujan MD Primary Care Provider [phone] Encounters Date Type Department Care Team Description 06/14/2024 1:10 PM EPIC APPLICATION COORDINATOR Office Visit [facility] Orthopaedic Surgery [address] [facility] Medical Office Building [address] [place] [address] Emeli Mishra MD Achilles tendinosis of right ankle (Primary Dx) 05/23/2024 Telephone [facility] [place] [address] [place] [phone] Sruthi Rand MA 05/23/2024 Telephone [facility] [place] [address] [place] [phone] Sruthi Rand MA 05/21/2024 3:21 PM EPIC APPLICATION COORDINATOR - 05/21/2024 11:59 PM EPIC APPLICATION COORDINATOR Hospital Encounter [address] [address] Vaginal itching; Acute cystitis with hematuria Discharge Disposition: Discharge to home or self care 05/21/2024 3:30 PM EPIC APPLICATION COORDINATOR Office Visit [facility] [place] [address] [phone] Hilary Ruffin NP Acute cystitis with hematuria (Primary Dx); Vaginal itching from Last 3 Months Allergies Active Allergy Reactions Criticality Noted Date [...] by mouth daily with dinner Active omega 0-nzo-ftm-fish oil 1,000 mg (120 mg-180 mg) capsuleIndication [...] (06/26/2020): Added automatically from request for surgery [id number] Uterine polyp 05/22/2020 Overview (05/22/2020): Added automatically from request for surgery [id number] Low back pain 05/18/2017 Inguinal pain 05/18/2017 Pain of lower extremity 05/18/2017 Arthralgia of hip 03/25/2017 Abscess of lip 08/22/2015 History of surgical procedure 08/22/2015 Immunizations Immunization Administration Dates Next Due Influenza, Quadrivalent, Hig h Dose, Preservative Free, Intrr 01/07/2021 Influenza, Trivalent, Preservative Free, Intramu scular 02/03/2017,01/14/2016 Moderna SARS-CoV-2 Monovalent Vaccination (12+ Y RS) 04/23/2020,04/23/2020 Pneumococcal Conjugate PCV 13 09/28/2018 Pneumococcal Polysaccharide PPV23 09/28/2017 TD Preservative Free 11/16/2002 ZOSTER Recombinant 06/23/2018,04/16/2018 Social History Tobacco Use Types Packs/Day Years [...] on file Legal Sex Female 8:21 AM EPIC APPLICATION COORDINATOR Gender Identity Female 07/20/2020 6:43 AM CDT Sexual Orientation Straight 07/20/2020 6: 43 AM CDT Last Filed Vital Signs Vital Sign Reading Time Taken Comments Blood Pressure 112/78 05/21/2024 3:21 PM EPIC APPLICATION COORDINATOR Pulse 75 05/21/2024 3:21 PM EPIC APPLICATION COORDINATOR Temperature 36.6 C (97.8 F) 05/21/2024 3:21 PM EPIC APPLICATION COORDINATOR Respiratory Rate 16 05/21/2024 3:21 PM EPIC APPLICATION COORDINATOR Oxygen Saturation 98% 05/21/2024 3:21 PM EPIC APPLICATION COORDINATOR Inhaled Oxygen Concentration - - Weight 88.5 kg (195 lb) 05/21/2024 3:21 PM EPIC APPLICATION COORDINATOR Height 172.7 cm (5' 8 ) 05/21/2024 3:21 PM EPIC APPLICATION COORDINATOR Body Mass Index 29.65 05/21/2024 3:21 PM EPIC APPLICATION COORDINATOR Plan of Treatment Not on file Procedures Procedure Name Priority Date/Time Associated Diagnosis Comments POCT URINALYSIS DIPSTICK Routine 05/21/2024 3:43 PM EPIC APPLICATION COORDINATOR Acute cystitis with hematuria URINE CULTURE Routine 05/21/2024 3:21 PM EPIC APPLICATION COORDINATOR Acute cystitis with hematuria VAGINITIS PANEL Routine 05/21/2024 3:21 PM EPIC APPLICATION COORDINATOR Vaginal itching from Last 3 Months Results * (ABNORMAL) POCT urinalysis dipstick (05/21/2024 3:43 PM EPIC APPLICATION COORDINATOR) Color, Urine, POC Yellow Clarity, ur, POC Clear Clear Glucose, ur, POC Negative Negative MG/DL Bilirubin, ur, POC Negative Negative, Small, Moderate, Large Ketones, ur, POC Negative Negative Specific [place], POC 1.015 1.003 - 1.030 Blood, ur, POC Trace(A) Negative pH, ur, POC 6.0 5.0 - 8.0 Protein, ur, POC Negative Negative Urobilinogen, urine, POC 0.2 0.2 - 1.0 mg/dL Nitrite, ur, POC Negative Negative Leukocytes, ur, POC Small(A) Negative Lot Number [id number] Urine 05/21/2024 3:43 PM EPIC APPLICATION COORDINATOR Hilary Ruffin NP POINT OF CARE TEST ORDERABLES Fi nal Result * Vaginitis panel Vaginal (05/21/2024 3:21 PM EPIC APPLICATION COORDINATOR) Dasha DNA probe Not Detected Not Detected Comment:Testing performed by : [facility], [address] [place] [address]., [id number] Gardnerella DNA probe Not Detected Not Detected ZAKIYA LOVE Comment:Testing performed by : [facility], [address] [place] [address]., [id number] Trichomonas DNA probe Not Detected Not Detected ZAKIYA LOVE Comment: Interpretive Data Testing performed by [facility] via Affirm VPIII Microbial Identification Test, [...] last revised on 2020. Testing performed by: [facility], [address] [place] [address]., [id number] Vaginal 05/21/2024 3:21 PM EPIC APPLICATION COORDINATOR 05/23/2024 8:24 AM EPIC APPLICATION COORDINATOR Hilary Ruffin NP LAB MICROBIOLOGY - GENERAL ORDER SHILPA Final Result ZAKIYA [id number] [address] Department [place] [address] * Urine culture Urine, clean voided (05/21/2024 3:21 PM EPIC APPLICATION COORDINATOR) Pathologist [facility] Report Final Report: Less than 100,000 colonies/mL (clinically insignificant growth based on current clinical standards) Comment:Testing performed by : [facility], [address] [place] [address], [place]., [address] Organism (CLINICALLY INSIGNIFICANT GROWTH ZAKIYA Urine, clean voided 05/21/2024 3:21 PM EPIC APPLICATION COORDINATOR 05/22/2024 2:13 AM EPIC APPLICATION COORDINATOR Narrative ZAKIYA LOVE - 05/23/2024 6:18 AM EPIC APPLICATION COORDINATOR Testing performed by [facility] Microbiology Laboratory ([phone]) us Hilary Ruffin NP LAB MICROBIOLOGY - GENERAL ORDER SHILPA Final Result ZAKIYA LOVE [address] Department [place] [address] from Last 3 Months Additional Health Concerns Infection Onset Date Last Indicated C. difficile Comment:Germ watcher auto flagging. Specimen: STOOL Site: 09/03/2015 09/03/2015 Insurance [facility] MEDICARE [facility] MEDICARE [employer] MEDICARE Advance Directives For more information, please contact: [phone] Documents on File Type Date Recorded Patient Behavioral Health Consultant Expl anation ADVANCE DIRECTIVE 07/09/2020 5:44 AM Power of Parks Recreation Coordinator-Medical Care Teams Ice Cream Shop Associate Relationship Specialty Start Date End Date Sabina Lujan MD [address] [place] [address] [place] [address] PCP - General Family Medicine 03/15/24 Imelda Estrella MD [phone] [place] [address] Referring Physician Urogynecology 07/27/20
== END 2024-07-04 07:51 | disposition home or self-care (01) ==
LOC: ANHIMG 07:52
PROVIDERS: PCP Family Medicine; Visit Provider Family Medicine
DX: Z12.31 Encounter for screening mammogram for malignant neoplasm of breast (principal)
CPT/HCPCS: 77063; 77067

== ENCOUNTER 2024-08-31 08:46 | Outpatient (CLI) | payer MEDICARE, SELFPAY ==
--- NOTE | ~2024-08-31 | XR_ITS ---
Clinical Indication: Cough PA and lateral views of the chest: Comparison: None Findings: The lungs are clear, without evidence of focal consolidation or pleural effusion. Cardiome diastinal silhouette is within normal limits. Bones and soft tissues are unremarkable. Impression: Normal chest. Reviewed, dictated and finalized at location . Impression: Normal chest.
== END 2024-08-31 08:47 | disposition home or self-care (01) ==
PROVIDERS: PCP Family Medicine; Visit Provider Family Medicine
DX: R05.9 Cough, unspecified (principal)
CPT/HCPCS: 71046